=== PATIENT | female | born 1975 | race Caucasian/White ===

== ENCOUNTER 2023-04-16 15:42 | Emergency (ER) | payer OTHER ==
[~2023-04-16] VITALS: Ht 152.4 cm; Wt 69.4 kg
[2023-04-16 15:55] VITALS: TEMP 98.5
[2023-04-16] MEDS ORDERED: METOCLOPRAMIDE HCL 10 MG/2 ML VIAL ONE (16:47)
[2023-04-16] MEDS ORDERED: KETOROLAC TROMETHAMINE 15 MG/ML VIAL ONE (16:47)
[2023-04-16] MEDS: IV NS 0.9% 1,000 ML BAG IV ONE (16:50)
[2023-04-16] MEDS: KETOROLAC TROMETHAMINE 15 MG/ML VIAL IV ONE (16:52)
[2023-04-16] MEDS: METOCLOPRAMIDE HCL 10 MG/2 ML VIAL IV ONE (16:55)
[2023-04-16 17:02] LABS: BASOPHILS % (AUTO) 0.5 % (0.0-2.0); EOSINOPHILS # (AUTO) 0.1 K/uL (0.0-0.7); EOSINOPHILS % (AUTO) 1.6 % (0.0-6.0); HEMATOCRIT 40 % (33-45); HEMOGLOBIN 13.4 g/dL (11.5-14.8); LYMPHOCYTES % (AUTO) 43.3 % (20.0-44.0); MEAN CORPUSCULAR HEMOGLOBIN 29 PG (26.0-33.0); MEAN CORPUSCULAR HGB CONC 33 g/dl (31.0-36.0); MEAN CORPUSCULAR VOLUME 88 fL (82-100); MONOCYTES # (AUTO) 0.4 K/uL (0.1-1.30); MONOCYTES % (AUTO) 8.9 % (2.0-12.0); NEUTROPHILS # (AUTO) 2.2 K/uL (1.8-8.9); NEUTROPHILS % (AUTO) 45.7 % (43.0-81.0); PLATELET COUNT (AUTO) 229 K/uL (150-450); RED CELL DISTRIBUTION WIDTH 14.3 % (11.5-15.0); WHITE BLOOD COUNT (AUTO) 4.7 K/uL (4.3-11.0)
[2023-04-16 17:24] LABS: INR 1.03 (0.91-1.10); PARTIAL THROMBOPLASTIN TIME 26.8 SEC (24.3-34.3); PROTHROMBIN TIME 10.9 SECS (9.2-11.1)
[2023-04-16 17:40] LABS: ALANINE AMINOTRANSFERASE 29 U/L (12-78); ALBUMIN 4.4 g/dL (3.4-5.0); ALKALINE PHOSPHATASE 49 U/L (46-116); ASPARTATE AMINOTRANSFERASE 18 U/L (15-37); BILIRUBIN,DIRECT 0.1 mg/dL (0.0-0.2); BILIRUBIN,TOTAL 0.5 mg/dL (0.2-1.0); CALCIUM, SERUM 9.4 mg/dL (8.5-10.1); CARBON DIOXIDE 26 mmol/L (21-32); CREATININE 0.6 mg/dL (0.6-1.3); GLUCOSE 89 mg/dL (74-106); TOTAL PROTEIN, SERUM 8.1 g/dL (6.4-8.2); UREA NITROGEN, BLOOD 14 mg/dL (7-18)
[2023-04-16 17:45] LABS: THYROID STIMULATING HORMONE 1.191 uIU/mL (0.358-3.74)
[2023-04-16 17:46] LABS: CHLORIDE 103 mmol/L (98-107); POTASSIUM 4.1 mmol/L (3.5-5.1); SODIUM SERUM 138 mmol/L (136-145)
[2023-04-16 18:20] VITALS: BP 120/75; O2SAT 99
== END 2023-04-16 18:19 | disposition home or self-care (01) ==
LOC: ER 15:48
DX: R53.1 Weakness (principal); Z79.899 Other long term (current) drug therapy
CPT/HCPCS: 99285; 96374; 71045; 96361; 96375; 93005; 85025; 80048; 80076; 36415; 84439; 84443; 84484; 85730; J2765; J1885